=== PATIENT | female | born 1955 | race Caucasian/White ===

== ENCOUNTER 2020-04-26 11:06 | Emergency (ER) | payer OTHER ==
[2020-04-26] MEDS ORDERED: lisinopriL 5 MG TABLET PO STA (11:46)
--- NOTE | 2020-04-26 11:48 | ED Physician Documentation ---
History of Present Illness - Stated complaint Stated Complaint: HIGH BP - Chief complaint Chief Complaint: General - History obtained from History obtained from: Patient - History of Present Illness Timing: Chronic Pain level max: 0 Pain level now: 0 - Additonal information Additional information: 64-year-old female presents to the emergency department complaining of hypertension today. She states she normally does not take her blood pressure, but recently obtained a blood pressure cuff for home for her . Checked her blood pressure today and it was over 200. She is otherwise asymptomatic. No headache, no visual changes, no chest pain. Nothing makes it better or worse. She states she does not see her doctor regularly. Does not know what her normal blood pressure is. Review of Systems Constitutional: denies: Fever, Chills Ears: denies: Ear pain Nose: denies: Rhinorrhea / runny nose, Congestion Throat: denies: Sore throat Cardiac: denies: Chest pain / pressure, Palpitations Respiratory: denies: Dyspnea, Cough, Wheezing GI: denies: Abdominal Pain, Nausea, Vomiting, Diarrhea Skin: denies: Rash Musculoskeletal: denies: Neck pain, Back pain Neurologic: denies: Headache PD PAST MEDICAL HISTORY - Past Medical History Past Medical History: No - Past Surgical History Past Surgical History: No - Present Medications Home Medications: Ambulatory Orders Medication Instructions Recorded Confirmed Lisinopril [Prinivil] 10 mg PO DAILY #30 04/26/20 - Allergies Allergies/Adverse Reactions: Allergies Allergy/AdvReac Type Severity Reaction Status Date / Time acetaminophen [From Vicodin] Allergy Severe Respiratory Verified 04/26/20 11:13 hydrocodone bitartrate * Allergy Severe Respiratory Verified 04/26/20 11:13 [From Vicodin] - Social History Does the pt smoke?: No Smoking Status: Never smoker Does the pt drink ETOH?: No ETOH Use: Wine Does the pt have substance abuse?: No - Immunizations Immunizations are current?: Yes Immunizations: TDAP current <10years - POLST Patient has POLST: No PD ED PE NORMAL - Vitals Vital signs reviewed: Yes - General General: Alert and oriented X 3, No acute distress - HEENT HEENT: Atraumatic, PERRL, Moist mucous membranes - Neck Neck: Supple, no meningeal sign - Cardiac Cardiac: RRR - Respiratory Respiratory: No respiratory distress, Clear bilaterally - Abdomen Abdomen: Soft, Non tender, Non distended - Derm Derm: Warm and dry - Neuro Neuro: Alert and oriented X 3 - Psych Psych: Normal mood, Normal affect Results - Vitals Vitals: Vital Signs - 24 hr 04/26/20 04/26/20 04/26/20 11:10 11:23 11:55 Temperature 36.4 C L Heart Rate 77 71 66 Respiratory 20 16 16 Rate Blood Pressure 219/99 H 204/103 H 197/96 H O2 Saturation 100 99 98 04/26/20 12:16 Temperature 36.8 C Heart Rate 64 Respiratory 14 Rate Blood Pressure 181/99 H O2 Saturation 97 Oxygen O2 Source Room air PD MEDICAL DECISION MAKING - ED course Complexity details: reviewed results, re-evaluated patient, considered differential, d/w patient ED course: 64-year-old female with asymptomatic hypertension. She has had blood pressures in the 170s to 190s in the past in the emergency department. This has been ongoing for at least 7 years. We will start her on a low-dose lisinopril and have her follow-up with her doctor. No indication for further work-up in the emergency department at this time. Patient counseled regarding signs and symptoms for which I believe and urgent re-evaluation would be necessary. Patient with good understanding of and agreement to plan and is comfortable going home at this time This document was made in part using voice recognition software. While efforts are made to proofread this document, sound alike and grammatical errors may occur. Departure - Departure Disposition: 01 Home, Self Care Clinical Impression: Hypertension Qualifiers: Hypertension type: unspecified Qualified Code(s): I10 - Essential (primary) hypertension Condition: Good Instructions: ED HTN Established, ED Hypertension New Begin Tx Follow-Up: Watson Pulido DO [Primary Care Provider] - Within 1 week Prescriptions: Lisinopril [Prinivil] 10 mg PO DAILY #30 Comments: We will start you on an BRANNON inhibitor today. Follow-up with Dr. Pulido next week for repeat evaluation. You should take your blood pressure once per day, preferably at the same time and keep a log of this. This will help him adjust your medications. As we discussed today, upon review of your hospital records back in 2013, you had hypertension at that point as well, blood pressures ranged in the 160s to 190s. Discharge Date/Time: 04/26/20 12:22
[2020-04-26 12:17] VITALS: BP 181/99
== END 2020-04-26 12:22 | disposition home or self-care (01) ==
LOC: ED 11:06
DX: I10 Essential (primary) hypertension (principal)
CPT/HCPCS: 99282; 99284; A9270

== ENCOUNTER 2020-07-30 08:33 | Outpatient (CLI) | payer OTHER ==
--- NOTE | 2020-07-31 14:07 | Mammography Report ---
BILATERAL DIGITAL SCREENING MAMMOGRAM 3D/2D: 07/30/2020 CLINICAL: Routine screening. Comparison is made to exams dated: 04/28/2013 mammogram and 10/31/2008 mammogram - [facility]. The tissue of both breasts is heterogeneously dense. This may lower the sensitivity of bennei mography. No significant masses, calcifications, or other findings are seen in either breast. There has been no significant interval change. IMPRESSION: NEGATIVE There is no mammographic evidence of malignancy. A 1 year screening mammogram is recommended. This exam was interpreted at Station ID: [id number]. NOTE: For mammograms, a report in lay terms will be sent to the patient. Approximately 15% of breast malignancies will not be visualized mammographically. In the management of a palpable breast mass, a negative mammogram must not discourage biopsy of a clinically suspicious lesion. Electronically Signed By: Regulo Chamberlain M.D. ddp/penrad:07/30/2020 09:25:07 ACR BI-RADS Category 1: Negative 3341F PARENCHYMAL PATTERN: (D) - The breast(s) demonstrate(s) heterogeneously dense fibroglandular giovanna triplett. BI-RADS CATEGORY: (1) - 1 RECOMMENDATION: (ANNUAL) - Recommend routine annual screening mammography. [id number] 1 year screening LATERALITY: (B)
== END 2020-07-30 08:34 | disposition home or self-care (01) ==
LOC: DI 08:33
PROVIDERS: ATTEND Physician Assistant
DX: Z12.31 Encounter for screening mammogram for malignant neoplasm of breast (principal)

== ENCOUNTER 2022-06-17 11:03 | Outpatient (CLI) | payer OTHER ==
--- NOTE | 2022-06-18 10:48 | Mammography Report ---
BILATERAL DIGITAL SCREENING MAMMOGRAM 3D/2D: 06/17/2022 CLINICAL: Routine screening. Comparison is made to exams dated: 07/30/2020 mammogram and 04/28/2013 mammogram - [facility]. There are scattered areas of fibroglandular density in both breasts (category b / 25%-50% glandular t issue). No significant masses, calcifications, or other findings are seen in either breast. There has been no significant interval change. IMPRESSION: NEGATIVE There is no mammographic evidence of malignancy. A 1 year screening mammogram is recommended. Based on the Tyrer Cuzick model (a risk assessment model) the patients lifetime risk is 5.7% and her 10 year risk is 2.6%. According to the ACR, ACS, and NCCN guidelines, an annual breast MRI exam sid g with mammogram is recommended if the patients lifetime risk is 20% or greater. This exam was interpreted at Station ID: [id number]. NOTE: For mammograms, a report in lay terms will be sent to the patient. Approximately 15% of breast malignancies will not be visualized mammographically. In the management of a palpable breast mass, a negative mammogram must not discourage biopsy of a clinically suspicious lesion. Electronically Signed By: Mauricio lundberg/arlyn:06/17/2022 13:30:16 letter sent: No_Letter ACR BI-RADS Category 1: Negative 3341F PARENCHYMAL PATTERN: (A) - The breast(s) demonstrate(s) scattered fibroglandular densities. BI-RADS CATEGORY: (1) - 1 Mammogram [id number] 1 year screening LATERALITY: (B)
== END 2022-06-17 11:04 | disposition home or self-care (01) ==
LOC: DI 11:03
PROVIDERS: ATTEND Physician Assistant
DX: Z12.31 Encounter for screening mammogram for malignant neoplasm of breast (principal)

== ENCOUNTER 2023-09-17 10:40 | Outpatient (CLI) | payer OTHER ==
--- NOTE | 2023-09-20 09:38 | Mammography Report ---
BILATERAL DIGITAL SCREENING MAMMOGRAM 3D/2D: 09/17/2023 CLINICAL: Routine screening. Comparison is made to exams dated: 06/17/2022 mammogram and 07/30/2020 mammogram - [facility]. There are scattered areas of fibroglandular density in both breasts (category b / 25%-50% glandular t issue). There is a possible new 0.5 cm oval focal asymmetry in the left breast at 10 o'clock posterior depth. No other significant masses, calcifications, or other findings are seen in either breast. IMPRESSION: INCOMPLETE: NEEDS ADDITIONAL IMAGING EVALUATION The possible new 0.5 cm oval focal asymmetry in the left breast is indeterminate. Additional views w ith possible ultrasound are recommended. Based on the Tyrer Cuzick model (a risk assessment model) the patient's lifetime risk is 5.5% and her 10 year risk is 2.6%. According to the ACR, ACS, and NCCN guidelines, an annual breast MRI exam sid g with mammogram is recommended if the patient's lifetime risk is 20% or greater. This exam was interpreted at Station ID: [id number]. NOTE: For mammograms, a report in lay terms will be sent to the patient. Approximately 15% of breast malignancies will not be visualized mammographically. In the management of a palpable breast mass, a negative mammogram must not discourage biopsy of a clinically suspicious lesion. Electronically Signed By: Mauricio Grande M.D. aty/:09/17/2023 14:36:54 ACR BI-RADS Category 0: Incomplete 3340F PARENCHYMAL PATTERN: (A) - The breast(s) demonstrate(s) scattered fibroglandular densities. BI-RADS CATEGORY: (0) - 0 Mammo and [place] [id number] Immediate follow-up LATERALITY: (L)
== END 2023-09-17 10:41 | disposition home or self-care (01) ==
LOC: DI 10:40
DX: Z12.31 Encounter for screening mammogram for malignant neoplasm of breast (principal); R92.8 Other abnormal and inconclusive findings on diagnostic imaging of breast; R92.323 Mammographic fibroglandular density, bilateral breasts

== ENCOUNTER 2023-10-18 12:23 | Outpatient (CLI) | payer OTHER ==
--- NOTE | 2023-10-19 07:44 | Mammography Report ---
UNILATERAL LEFT DIGITAL DIAGNOSTIC MAMMOGRAM 3D/2D WITH SPOT COMPRESSION: 10/18/2023 CLINICAL: Patient returns today to evaluate a focal asymmetry in the left breast. Comparison is made to exams dated: 09/17/2023 mammogram, 06/17/2022 mammogram, and 07/30/2020 mammogram - [facility]. There are scattered areas of fibroglandular density in the left breast (category b / 25%-50% glandula r tissue). There is architectural distortion in the left breast at 10 o'clock posterior depth. This is seen in additional views. No other significant masses or calcifications are seen in the breast. IMPRESSION: INCOMPLETE: NEEDS ADDITIONAL IMAGING EVALUATION The architectural distortion in the left breast is indeterminate. An ultrasound is recommended. Based on the Tyrer Cuzick model (a risk assessment model) the patient's lifetime risk is 5.5% and her 10 year risk is 2.6%. According to the ACR, ACS, and NCCN guidelines, an annual breast MRI exam sid g with mammogram is recommended if the patient's lifetime risk is 20% or greater. This exam was interpreted at Station ID: [id number]. NOTE: For mammograms, a report in lay terms will be sent to the patient. Approximately 15% of breast malignancies will not be visualized mammographically. In the management of a palpable breast mass, a negative mammogram must not discourage biopsy of a clinically suspicious lesion. Electronically Signed By: Noe Cross M.D. lc/:10/18/2023 13:18:12 ACR BI-RADS Category 0: Incomplete 3340F PARENCHYMAL PATTERN: (A) - The breast(s) demonstrate(s) scattered fibroglandular densities. BI-RADS CATEGORY: (0) - 0 Ultrasound [id number] Immediate follow-up LATERALITY: (B)
--- NOTE | 2023-10-19 07:44 | Ultrasound Report ---
LIMITED ULTRASOUND OF LEFT BREAST AND AXILLA: 10/18/2023 CLINICAL: Patient returns today to evaluate a focal asymmetry in the left breast. Comparison is made to exams dated: 09/17/2023 mammogram, 06/17/2022 mammogram, and 07/30/2020 mammogram - [facility]. Color flow ultrasound of the left breast upper inner quadrant and axilla regions was performed. Gra y scale images of the real-time examination were reviewed. No significant abnormalities were seen sonographically in the left breast or the left axilla. IMPRESSION: SUSPICIOUS OF MALIGNANCY There is no abnormality seen in the left breast to correspond with the mammography finding. No signi ficant abnormalities were seen sonographically in the left breast or the left axilla. Stereotatic biopsy recommended for the suspicious left breast architectural distortion. This exam was interpreted at Station ID: [id number]. Electronically Signed By: Noe Cross M.D. lc/:10/18/2023 13:19:26 Ultrasound BI-RADS: 4 Suspicious for malignancy BI-RADS CATEGORY: (4) - 4 Biopsy follow-up [id number] Immediate follow-up LATERALITY: (B)
== END 2023-10-18 12:24 | disposition home or self-care (01) ==
LOC: DI 12:23
PROVIDERS: ATTEND Physician Assistant
DX: R92.2 Inconclusive mammogram (principal)

== ENCOUNTER 2023-11-08 09:05 | Outpatient (CLI) | payer OTHER ==
[2023-11-08] MEDS ORDERED: LIDOCAINE 1%-EPI 1:100000 20 ML MDV ONE (09:14)
[2023-11-08] MEDS ORDERED: LIDOCAINE-MPF 1% 5 ML VIAL ONE (09:14)
[2023-11-08] MEDS: LIDOCAINE-MPF 1% 5 ML VIAL TD ONE (11:44)
[2023-11-08] MEDS: LIDOCAINE 1%-EPI 1:100000 20 ML MDV SUBQ ONE (11:45)
--- NOTE | 2023-11-11 14:32 | Mammography Report ---
DIGITAL TOMOGRAPHIC MAMMOGRAPHY GUIDED STEREOTACTIC GUIDED BIOPSY LEFT BREAST USING VACUUM DEVICE WIT H POST MAMMOGRAPHIC IMAGING- - LEFT BREAST POST-PROCEDURE IMAGING FOR MARKER PLACEMENT: 11/08/2023 CLINICAL: Left stereotactic biopsy for architectural distortion. Correlation is made to exams dated: 10/18/2023 mammogram, 09/17/2023 mammogram, 06/17/2022 mammogram, a nd 07/30/2020 mammogram - [facility]. A stereotactic guided biopsy was performed for the irregular shaped asymmetry located in the left iraj ast at 10 o'clock posterior depth. This was described on the previous mammography report. The skin was prepped in the usual manner. Local anesthetic was administered to the access site. A skin remy was made in the breast. The abnormality was approached from the craniocaudal aspect using an upright digital tomographic mammography unit. A biopsy needle was placed adjacent to the abnormality under computer guidance and confirmatory stereotactic mammography images were obtained to document needle p lacement. Once the needle was documented to be in the correct location, seven specimens were obtaine d using the Xention system. A sterile dressing was applied to the access site. Post procedure ma mmographic imaging demonstrates the clip 2.2cm superior from the geometric center of the targeted are a. There are changes near the superior aspect of the irregular asymmetry showing post biopsy changes . The marker is in the expected location on the craniocaudal view. The specimens were sent [facility] for pathological analysis. IMPRESSION: STEREOTACTIC GUIDED BIOPSY MALIGNANT Stereotactic guided biopsy of the asymmetry in the left breast posterior depth was successful. There was apparent marker migration approximately 2.2 cm superior to the geometric center of targeted area likely due to accordion effect. Findings were discussed with the patient by Dr. Grande prior to dischar ge from the radiology department. Pathology indicates malignant invasive lobular carcinoma ([place]). Pathology results are concordant with imaging findings. A surgical/oncologic consultation is recommended. This exam was interpreted at Station ID: [id number]. Mauricio Grande M.D. aty/:11/11/2023 09:15:57 BI-RADS CATEGORY: () - Unspecified - other recall n/a LATERALITY: (B)
== END 2023-11-08 09:06 | disposition home or self-care (01) ==
LOC: DI 09:05
PROVIDERS: ATTEND Physician Assistant
DX: C50.212 Malignant neoplasm of upper-inner quadrant of left female breast (principal); Z17.0 Estrogen receptor positive status [ER+]
CPT/HCPCS: 19081

== ENCOUNTER 2023-11-10 10:50 | Outpatient (CLI) | payer OTHER ==
--- NOTE | 2023-11-11 10:23 | DEXA Report ---
PROCEDURE: Dexa Spine and/or Hip INDICATIONS: POST MENOPAUSAL TECHNIQUE: Dual energy x-ray absorptiometry (DXA) was performed on a [employer] System. Regions measur ed are the AP Spine, femoral neck, and if needed forearm. COMPARISON: None FINDINGS: Lumbar Spine: Bone Mineral Density: 1.053 g/cm/cm,T score: -1.1. Osteopenia Left Femoral Neck: Bone Mineral Density: 0.700 g/cm/cm, T score: -2.4, osteopenia. Left Hip: Bone Mineral Density: 0.844 g/cm/cm,T score: -1.3. Osteopenia FRAX risk factors: None given. 10 year risk of major osteoporotic fracture: 12.2% major osteoporotic fracture = hip, clinical vertebral, proximal humerus, distal forearm 10 year risk of hip fracture: 2.4% (T score greater or equal to -1.0: NORMAL) (T score from -1.1 to -2.4: OSTEOPENIA) (T score less than or equal to -2.5 to: OSTEOPOROSIS) Impression: By WHO criteria, this patient has low bone density (osteopenia). Patients with diagnosis of osteoporosis or osteopenia should have regular bone mineral density assess ment. For those eligible for Medicare, routine testing is allowed once every 2 years. Testing frequ ency can be increased for patients who have rapidly progressing disease or for those who are receivin g medical therapy to restore bone mass. Reviewed by: Sydnee Nguyen MD on 11/11/2023 10:22 AM PDT Approved by: Sydnee Nguyen MD on 11/11/2023 10:22 AM PDT Station ID: [id number]
== END 2023-11-10 10:51 | disposition home or self-care (01) ==
LOC: DI 10:50
PROVIDERS: ATTEND Physician Assistant
DX: M85.89 Other specified disorders of bone density and structure, multiple sites (principal)